=== PATIENT | male | born 1955 | race Caucasian/White ===

== ENCOUNTER 2018-06-06 09:50 | Day surgery (SDC) | payer OTHER ==
[~2018-06-06] VITALS: Ht 182.9 cm; Wt 84.9 kg
[2018-06-06] MEDS ORDERED: vitamin d3 (11:36)
[2018-06-06] MEDS ORDERED: omeprazole (11:36)
[2018-06-06 11:40] VITALS: BP 146/83; PULSE 65; RESP 19
[2018-06-06] MEDS ORDERED: LIDOCAINE 2% (SDV) 5 ML INJ ONE (11:54)
[2018-06-06] MEDS ORDERED: PROPOFOL 60 ML ONE (11:54)
--- NOTE | 2018-06-06 11:54 | PREAC ---
Date/Time of Note Date/Time of Note DATE: 06/06/18 TIME: 11:52 Anesthesia Eval and Record Evaluation Time Pre-Procedure Interview DATE: 06/06/18 TIME: 11:52 Age 62 Sex male NPO: 8 hrs Preoperative diagnosis Dysphagia, colon screening Planned procedure EGD, colonoscopy Past Medical History Past Medical History: Includes Cardio: HTN Surgery & Anesthesia Issues No known issue Meds Anticoagulation: No Beta Sal within 24 hr: No Reason Beta Sal not given: Pt. not on B-Sal Reported Medications [vitamin d3] No Conflict Check 06/06/18 [omeprazole] No Conflict Check 06/06/18 Meds reviewed: Yes Allergies Coded Allergies: No Known Allergy (Unverified , 06/06/18) Allergies Reviewed: Yes Labs/Studies Labs Reviewed: Reviewed by anesthesiologist test: N/A Studies: ECG Pre-procedure Exam Last vitals Vital Signs Date Temp Pulse Resp B/P (MAP) Pulse Ox O2 O2 Flow FiO2 Time Delivery Rate 06/06/18 98.1 65 19 146/83 97 Room Air 11:40 (104) Airway: Adequate mouth opening, Adequate thyromental dist Mallampati: Mallampati II Teeth: Normal Lung: Normal Heart: Normal ASA Physical Status ASA physical status: 2 Emergency: None Planned Anesthetic General/MAC: MAC Planned Pain Management Parenteral pain med Pre-operative Attestations Prior to commencing anesthesia and surgery, the patient was re-evaluated, there was verification of: *The patient's identity *The results of appropriate recent lab work and preoperative vital signs *The above evaluation not changing prior to induction *Anesthetic plan, risk benefits, alternative and complications discussed with patient/family; questions answered; patient/family understands, accepts and wishes to proceed. GARETH CARREON MD Jun 06, 2018 11:54
--- NOTE | 2018-06-06 12:25 | PAC ---
Date/Time of Note Date/Time of Note DATE: 06/06/18 TIME: 12:25 Post-Anesthesia Notes Post-Anesthesia Note Last documented vital signs Vital Signs Date Temp Pulse Resp B/P (MAP) Pulse Ox O2 O2 Flow FiO2 Time Delivery Rate 06/06/18 98.1 65 19 146/83 97 Room Air 11:40 (104) Activity: WNL Respiratory function: WNL Cardiovascular function: WNL Mental status: Baseline Pain reasonably controlled: Yes Hydration appropriate: Yes Nausea/Vomiting absent: Yes Comments BP:125/67, pulse:68, spo2:100%, T:98,8 GARETH CARREON MD Jun 06, 2018 12:25
[2018-06-06] MEDS ORDERED: FENTAnyl 50 MCG/ML VIAL IV PRN (12:30)
[2018-06-06] MEDS ORDERED: ONDANSETRON 4 MG INJ IV PRN (12:30)
[2018-06-06] MEDS ORDERED: DIPHENHYDRAMINE 50 MG INJ IV PRN (12:30)
[2018-06-06] MEDS ORDERED: MEPERIDINE 25 MG INJ IV PRN (12:30)
[2018-06-06 12:54] VITALS: BP 139/92; PULSE 67; RESP 18
== END 2018-06-06 14:48 | disposition home or self-care (01) ==
LOC: GIL 09:50
PROVIDERS: ATTEND Internal Medicine Gastroenterology
DX: Z12.11 Encounter for screening for malignant neoplasm of colon (principal); K22.70 Barrett's esophagus without dysplasia; K57.30 Diverticulosis of large intestine without perforation or abscess without bleeding
CPT/HCPCS: 43239; 45378; 88305; 88312; 88313; Z7610

== ENCOUNTER 2018-08-09 07:01 | Observation (INO) | payer OTHER ==
[2018-08-09] VITALS (15 sets, daily range): BP systolic 120–171; BP diastolic 66–101; PULSE 46–61; RESP 14–20; Ht 180.3 cm; Wt 85.2 kg
[~2018-08-09] VITALS: Ht 180.3 cm; Wt 85.2 kg
[~2018-08-09 07:01] MED LIST: omeprazole; vitamin d3
[2018-08-09] MEDS ORDERED: LISI30TA47 PO (07:45)
[2018-08-09] MEDS ORDERED: HYDR25TA6 PO (07:45)
[2018-08-09] MEDS ORDERED: FLUO40CA PO (07:46)
[2018-08-09] MEDS ORDERED: SERT-165 PO (07:46)
[2018-08-09] MEDS ORDERED: DIPHENHYDRAMINE 50 MG CAP PO SCH (07:46)
[2018-08-09] MEDS ORDERED: DIAZEPAM 5 MG TAB PO SCH (07:46)
[2018-08-09] MEDS ORDERED: FAMOTIDINE 20 MG TAB PO SCH (07:46)
[2018-08-09] MEDS ORDERED: TREX50 PO (07:47)
[2018-08-09] MEDS ORDERED: SIMV40TA2 PO (07:48)
[2018-08-09] MEDS ORDERED: FENO200 PO (07:48)
[2018-08-09] MEDS ORDERED: OMEG-158 PO (07:49)
[2018-08-09] MEDS ORDERED: TRAZ-111 PO (07:49)
[2018-08-09] MEDS ORDERED: SOD CHLORIDE 0.45% 1,000 ML IV SCH (08:00)
[2018-08-09] MEDS ORDERED: HEPARIN 1000 UNITS/ML 10 ML INJ ONE (08:46)
[2018-08-09] MEDS ORDERED: NITROGLYCERIN (IC) 100 MCG/ML INJ ONE (08:46)
[2018-08-09] MEDS ORDERED: LIDOCAINE 1% (MDV) 20 ML INJ ONE (08:46)
[2018-08-09] MEDS ORDERED: MIDAZOLAM 1 MG/ML 2 ML INJ ONE (08:46)
[2018-08-09] MEDS ORDERED: IODIXANOL LOCM 100 ML BTL ONE (08:46)
[2018-08-09] MEDS ORDERED: FENTAnyl 50 MCG/ML VIAL ONE (08:46)
[2018-08-09] MEDS ORDERED: SOD CHLORIDE 0.9% 500 ML ONE (08:47)
[2018-08-09] MEDS ORDERED: VERAPAMIL 5 MG INJ ONE (09:02)
[2018-08-09] MEDS ORDERED: SOD CHLORIDE 0.9% 1,000 ML IV SCH (10:20)
[2018-08-09] MEDS ORDERED: TICAGRELOR 90 MG TABLET ONE (10:20)
[2018-08-09] MEDS ORDERED: ASPIRIN 325 MG TAB ONE (10:20)
--- NOTE | 2018-08-09 10:20 | SIPON ---
Date/Time of Note Date/Time of Note DATE: 08/09/18 TIME: 10:18 Operative Report Preoperative Diagnosis 1.Chest pain Postoperative Diagnosis 1.obstructuve cad s/p stent x 1 Operation/Procedure Performed 1.C 2.PTCA/stent x 1 to LCX Surgeon see signature line residential assistant 1.Luis Eduardo Anesthesia: moderate sedation Estimated blood loss: minimal Transfusion Required none Specimen none Grafts/Implants none Complications none OSMIN AUGUSTE Aug 09, 2018 10:20
[2018-08-09] MEDS ORDERED: IOHEXOL 350MG/ML 50 ML BTL ONE (10:27)
[2018-08-09] MEDS ORDERED: ONDANSETRON 4 MG INJ IV PRN (10:30)
[2018-08-09] MEDS ORDERED: morphine 2 MG INJ IV PRN (10:30)
[2018-08-09] MEDS ORDERED: OXYCODONE/ACETAMINOPHEN (5/325) TAB PO PRN (10:30)
[2018-08-09] MEDS ORDERED: AL HYDROX/MG HYDROX/SIMETH 30 ML CUP PO PRN (10:30)
[2018-08-09] MEDS ORDERED: ACETAMINOPHEN 325 MG TAB PO PRN (10:30)
[2018-08-09] MEDS ORDERED: ZOLPIDEM 5 MG TAB PO PRN (10:30)
[2018-08-09] MEDS: TICAGRELOR 90 MG TABLET PO SCH ×2 (13:27→20:20)
--- NOTE | 2018-08-09 13:48 | RADRPT ---
Vent Rate: 64 bpm RR Interval: 940 msec [place] Interval: 194 msec QRS Duration: 89 msec QT Interval: 394 msec QTC Interval: 406 msec P-R-T [place]: 50 - 0 - 44 degrees Sinus rhythm...normal P axis Indeterminate axis...QRS axis indeterminate ST elevation suggests acute pericarditis Electronically Signed By: Adiel Solorio
[2018-08-09] MEDS ORDERED: DOCUSATE SODIUM 100 MG CAP PO PRN (14:00)
--- NOTE | 2018-08-09 14:02 | HP ---
Date/Time of Note Date/Time of Note DATE: 08/09/18 TIME: 13:53 Assessment/Plan VTE Prophylaxis Risk score (from Nsg)>0 risk: 2 SCD applied (from Nsg): No Lines/Catheters IV Catheter Type (from Nrsg): Peripheral IV Urinary Cath still in place: No Assessment/Plan Assessment/Plan chest pain LHC PTCA/stent x 1 to LCX obstructive cad s/p stent x 1 - cardio consult - [facility] - SCD - Protonix Hypertension Hyperlipidemia Plan dw dr Kimble /staff/patient Result Diagram: 08/09/18 0730 08/09/18 0730 Results 24hrs Laboratory Tests Test 08/09/18 07:30 White Blood Count 4.9 Red Blood Count 4.46 L Hemoglobin 14.3 Hematocrit 41.5 L Mean Corpuscular Volume 93.0 Mean Corpuscular Hemoglobin 32.1 Mean Corpuscular Hemoglobin Concent 34.5 Red Cell Distribution Width 12.5 Platelet Count 179 Mean Platelet Volume 10.9 H Immature Granulocytes % 0.200 Neutrophils % 56.1 Lymphocytes % 32.6 Monocytes % 8.7 Eosinophils % 1.8 Basophils % 0.6 Nucleated Red Blood Cells % 0.0 Immature Granulocytes # 0.010 Neutrophils # 2.8 Lymphocytes # 1.6 Monocytes # 0.4 Eosinophils # 0.1 Basophils # 0.0 Nucleated Red Blood Cells # 0.0 Prothrombin Time 12.3 Prothrombin Time Ratio 1.0 INR International Normalized Ratio 0.90 Activated Partial Thromboplast Time 32.6 Sodium Level 141 Potassium Level 3.9 Chloride Level 104 Carbon Dioxide Level 27 Anion Gap 10 Blood Urea Nitrogen 12 Creatinine 1.02 Est Glomerular Filtrat Rate mL/min > 60 Glucose Level 108 Calcium Level 9.5 Triglycerides Level > 525 H Cholesterol Level 222 H LDL Cholesterol, Calculated HDL Cholesterol 29 L Cholesterol/HDL Ratio 7.6 HPI/ROS Admit Date/Time Admit Date/Time Aug 09, 2018 at 10:24 ROS Eyes: no complaints Respiratory: no complaints Cardiovascular: no complaints Gastrointestinal: no complaints Genitourinary: no complaints Musculoskeletal: no complaints Skin: no complaints Endocrine: no complaints Lymphatic: no complaints Psychological: nl mood/affect Immunologic: no complaints PMH/Family/Social Past Medical History Medical History: high cholesterol, hypertension Medications Current Medications Sodium Chloride 1,000 ml @ 20 mls/hr Q24H IV ; Start 3/21/19 at 08:00; Stop 08/11/18 at 09:59 Aspirin (Halfprin) 81 mg DAILY PO ; Start 08/10/18 at 09:00 Ticagrelor (Brilinta) 90 mg BID PO Last administered on 08/09/18at 13:27; Admin Dose 90 MG; Start 08/09/18 at 12:00 Acetaminophen (Tylenol Tab) 650 mg Q4H PRN PO PAIN; Start 08/09/18 at 10:30 Oxycodone/ Acetaminophen (Percocet (5/ 325)) 1 tab Q4H PRN PO PAIN; Start 08/09/18 at 10:30 Morphine Sulfate (morphine) 1 mg Q1H PRN IV PAIN; Start 08/09/18 at 10:30 Zolpidem Tartrate (Ambien) 5 mg HS MAY REPEAT X 1 PRN PO INSOMNIA; Start 08/09/18 at 10:30 Al Hydrox/Mg Hydrox/Simethicone (Mag-Al Plus) 30 ml Q4H PRN PO GASTROINTESTINAL UPSET; Start 08/09/18 at 10:30 Ondansetron HCl (Zofran Inj) 4 mg Q4H PRN IV NAUSEA AND/OR VOMITING; Start 08/09/18 at 10:30 Sodium Chloride 1,000 ml @ 75 mls/hr [id number] IV Last administered on 08/09/18at 11:32; Admin Dose 75 MLS/HR; Start 08/09/18 at 10:20; Stop 08/09/18 at 23:39 Coded Allergies: No Known Allergy (Unverified , 08/09/18) Social History Alcohol Use: occasionally Smoking Status: Never smoker Drug Use: none Exam/Review of Systems Vital Signs Vitals Vital Signs Date Temp Pulse Resp B/P (MAP) Pulse Ox O2 O2 Flow FiO2 Time Delivery Rate 08/09/18 49 12:47 08/09/18 98.1 20 124/88 99 Room Air 11:05 (100) Exam Constitutional: alert, oriented, well developed Psych: nl mood/affect Head: normocephalic Eyes: EOMI, nl lids ENMT: nl external ears & nose Respiratory: clear to auscultation Cardiovascular: nl pulses Gastrointestinal: soft, non-tender Musculoskeletal: nl extremities to inspection Extremities: normal pulses Neurological: nl mental status, nl speech Skin: nl KAREN Gallego Aug 09, 2018 14:02
[2018-08-09] MEDS: FLUOXETINE 20 MG CAP PO SCH (15:06)
[2018-08-09] MEDS: SERTRALINE 100 MG TAB PO SCH (15:06)
--- NOTE | 2018-08-09 15:27 | CARRPT ---
DATE OF PROCEDURE: 08/09/2018 TYPE OF PROCEDURES: 1. Left heart catheterization. 2. Coronary angiography. 3. Percutaneous transluminal coronary angioplasty with placement of Synergy drug-eluting stent x1 to mid distal circumflex, 3.0 x 24 mm. 4. Moderate conscious sedation. ATTENDING PHYSICIAN: Osmin Dotson MD REFERRING PHYSICIAN: Self-referred. INDICATION: Chest pain refractory to medical therapy with positive stress test findings for anterior lateral ischemia. TYPE OF ANESTHESIA: Conscious local. BRIEF HISTORY: Mr. Stone is a 62-year-old male with history of hypertension, dyslipidemia, who initially presented with complaints of substernal chest pain. The patient was placed on ascending me dical therapy, but continued to have chest pains. He underwent cardiac stress testing revealing posi tive ischemia. Given these findings, the patient was referred for and presents today in order to und ergo left heart catheterization to assess possibility of significant obstructive coronary artery dise ase lending to symptoms of chest pain and positive stress test findings. DESCRIPTION OF PROCEDURE: After informed consent was obtained, the patient was brought to the [facility] cardiac catheterization lab where his right radial wrist was prepped and drape d in sterile fashion. A 2% lidocaine was infiltrated into the right radial area in order to achieve adequate anesthesia. Using the modified Seldinger technique, the right radial artery was cannulated and a 6-[place] arterial sheath was placed. A 6-[place] JL3.5 catheter was used to cannulate the left main coronary ostium. With contrast injection, multiple views of the left coronary system were obtai gretchen. JL3.5 was removed a guidewire and a JR4 was used to cannulate the right coronary arterial ostiu m. With contrast injection, multiple views of the right coronary system were obtained. JL4 was audie norah over a guidewire. A 6-[place] pigtail was passed up the aorta and placed in LV. LVEDP was measur ed and pullback across the aortic valve and removed. Subsequent at this time, we moved directly into an interventional procedure. The patient had an ACT checked and he received 5000 units of heparin i n his radial cocktail returning with an adequate preinterventional ACT. The patient had a CLS3 guide used to cannulate the left main coronary ostium. A 0.014 balance middleweight guidewire was passed distal to the lesion. The lesion was pretreated with a 2.5 x 21 balloon up to 14 to 16 atmospheres x 2. The balloon was removed and the lesion was stented with a 3.0 x 24 mm drug-eluting stent deployed at 14 atmospheres and post-dilated with stent placement at 16 atmospheres. Followup angiogram was o btained revealing excellent deployment of stent, VINCE 3 flow throughout the vessel, no signs of compl ication including perforation or dissection and mild step down distal end of the stent. Subsequently at this time, the patient's interventional guide and guidewires were removed. The patient's sheath was removed. TR band was applied. There were no noted complications. The patient received Brilinta 180 mg and aspirin 321 mg. This completed the procedure. FINDINGS: Coronary angiography: Left main is 5 mm, no significant focal stenoses. Circumflex proxi bradley is a 3.5 mm vessel and in its mid distal portion has a 90% long tubular lesion. There is mid b ranching obtuse marginal 3.5 mm with proximal body tubular 20% to 30% stenosis. The LAD proximally i s a 3.5 mm vessel and in its mid portion has approximately 40% stenosis. The remainder of the LAD th ereafter is free from significant focal stenoses and goes around the apex. There is mid branching di agonal just above the area of stenosis, 2 mm with no significant focal stenoses. The patient's right coronary artery proximally is a 3.5 mm vessel and in its midportion has a tubular 20% to 30% stenosi s, dominant vessel, gives off a 2.5 mm PDA and a 2.5 posterolateral branch each with no significant f ocal stenoses. Measurement of left ventricular end diastolic pressure of 14 to 16. PTCA and stent placement: Prior to PTCA and stent placement within the patient's circumflex stenosis , there is 90% stenosis. Post-PTCA and stent placement, the patient had no residual stenosis, VINCE 3 flow throughout the vessel, no signs of complication including perforation or dissection and very mi ld step down at the distal end of the stent and VINCE 3 flow throughout the vessel. TOTAL FLUOROSCOPY TIME: 6.8 minutes. TOTAL CONTRAST: 135 mL. IMPRESSION: 1. Single vessel obstructive coronary artery disease involving a long tubular lesion in circumflex v essel, status post PTCA and stent placement x1 with excellent result. 2. High normal left heart filling pressures. 3. No significant aortic stenosis by gradient. RECOMMENDATIONS: In light of procedure findings at this time, we would: 1. Maintain the patient on Brilinta 90 mg 1 tab p.o. daily for at least 6 months. 2. Aspirin 81 mg 1 tab p.o. daily indefinitely. 3. Maximize medical management. 4. Aggressive risk factor reduction. 5. The patient will be readmitted to the same day surgery for post-catheterization observation and c ontinued management of symptoms with probable discharge the following day. Dictated By: OSMIN PATIÑO/RITA Conf#: [id number] DID#: [id number]
[2018-08-09] MEDS ORDERED: hydrALAzine 20 MG INJ IV PRN (17:00)
[2018-08-09] MEDS ORDERED: traZODone 50 MG TAB PO SCH (21:00)
[2018-08-10] VITALS (10 sets, daily range): BP systolic 122–134; BP diastolic 75–89; PULSE 47–90; RESP 14–18
[2018-08-10] MEDS ORDERED: PANTOPRAZOLE (EC) 40 MG TAB PO SCH (06:00)
[2018-08-10] MEDS: TICAGRELOR 90 MG TABLET PO SCH ×2 (08:37→20:56)
[2018-08-10] MEDS ORDERED: HYDROCHLOROTHIAZIDE 25 MG TAB PO SCH (09:00)
[2018-08-10] MEDS: FLUOXETINE 20 MG CAP PO SCH (09:00)
[2018-08-10] MEDS ORDERED: LISINOPRIL 10 MG TAB PO SCH (09:00)
[2018-08-10] MEDS ORDERED: ASPIRIN (EC) 81 MG TAB PO SCH (09:00)
[2018-08-10] MEDS ORDERED: FLUOXETINE 20 MG CAP PO SCH (09:00)
[2018-08-10] MEDS: SERTRALINE 100 MG TAB PO SCH (09:00)
[2018-08-10] MEDS ORDERED: SERTRALINE 100 MG TAB PO SCH (09:00)
--- NOTE | 2018-08-10 12:24 | PN ---
Date/Time of Note Date/Time of Note DATE: 08/10/18 TIME: 12:23 Assessment/Plan VTE Prophylaxis Risk score (from Nsg)>0 risk: 2 SCD applied (from Nsg): No Lines/Catheters IV Catheter Type (from Nrsg): Peripheral IV Urinary Cath still in place: No Assessment/Plan Assessment/Plan chest pain LHC PTCA/stent x 1 to LCX obstructive cad s/p stent x 1 - cardio consult - resume home meds - SCD - Protonix Hypertension Hyperlipidemia Plan dw dr Kimble /staff/patient Result Diagram: 08/10/18 0634 08/10/18 0634 Results 24hrs Laboratory Tests Test 08/10/18 06:34 White Blood Count 6.3 # Red Blood Count 4.91 Hemoglobin 15.9 Hematocrit 46.0 Mean Corpuscular Volume 93.7 Mean Corpuscular Hemoglobin 32.4 Mean Corpuscular Hemoglobin Concent 34.6 Red Cell Distribution Width 12.7 Platelet Count 197 Mean Platelet Volume 11.1 H Immature Granulocytes % 0.300 Neutrophils % 72.5 Lymphocytes % 16.9 Monocytes % 8.4 Eosinophils % 1.3 Basophils % 0.6 Nucleated Red Blood Cells % 0.0 Immature Granulocytes # 0.020 Neutrophils # 4.6 Lymphocytes # 1.1 Monocytes # 0.5 Eosinophils # 0.1 Basophils # 0.0 Nucleated Red Blood Cells # 0.0 Sodium Level 142 Potassium Level 3.9 Chloride Level 102 Carbon Dioxide Level 28 Anion Gap 12 Blood Urea Nitrogen 13 Creatinine 1.11 Est Glomerular Filtrat Rate mL/min > 60 Glucose Level 109 Calcium Level 9.7 Creatine Kinase 90 Creatine Kinase Index 0.5 Creatinine Kinase MB (Mass) 0.47 Troponin I 0.018 Exam/Review of Systems Exam Vitals Vital Signs Date Temp Pulse Resp B/P (MAP) Pulse Ox O2 O2 Flow FiO2 Time Delivery Rate 08/10/18 97.9 62 14 128/82 98 11:47 (97) 08/10/18 Room Air 04:35 Intake and Output 08/09/18 08/09/18 08/10/18 1515:00 23:00 07:00 IntakeIntake Total 1045 ml 700 ml OutputOutput Total 700 ml BalanceBalance 345 ml 700 ml Constitutional: alert, oriented, well developed Psych: nl mood/affect Eyes: EOMI, nl lids, nl sclera ENMT: nl external ears & nose Neck: non-tender Respiratory: clear to auscultation Cardiovascular: nl pulses, other Gastrointestinal: soft, non-tender Musculoskeletal: nl extremities to inspection Extremities: normal pulses Neurological: nl mental status, nl speech Skin: nl turgor Lymph: nontender Results Results 24hrs Laboratory Tests Test 08/10/18 06:34 White Blood Count 6.3 # Red Blood Count 4.91 Hemoglobin 15.9 Hematocrit 46.0 Mean Corpuscular Volume 93.7 Mean Corpuscular Hemoglobin 32.4 Mean Corpuscular Hemoglobin Concent 34.6 Red Cell Distribution Width 12.7 Platelet Count 197 Mean Platelet Volume 11.1 H Immature Granulocytes % 0.300 Neutrophils % 72.5 Lymphocytes % 16.9 Monocytes % 8.4 Eosinophils % 1.3 Basophils % 0.6 Nucleated Red Blood Cells % 0.0 Immature Granulocytes # 0.020 Neutrophils # 4.6 Lymphocytes # 1.1 Monocytes # 0.5 Eosinophils # 0.1 Basophils # 0.0 Nucleated Red Blood Cells # 0.0 Sodium Level 142 Potassium Level 3.9 Chloride Level 102 Carbon Dioxide Level 28 Anion Gap 12 Blood Urea Nitrogen 13 Creatinine 1.11 Est Glomerular Filtrat Rate mL/min > 60 Glucose Level 109 Calcium Level 9.7 Creatine Kinase 90 Creatine Kinase Index 0.5 Creatinine Kinase MB (Mass) 0.47 Troponin I 0.018 Medications Medication Current Medications Sodium Chloride 1,000 ml @ 20 mls/hr Q24H IV ; Start 08/09/18 at 08:00; Stop 08/11/18 at 09:59 Aspirin (Halfprin) 81 mg DAILY PO Last administered on 08/10/18at 08:30; Admin Dose 81 MG; Start 08/10/18 at 09:00 Ticagrelor (Brilinta) 90 mg BID PO Last administered on 08/10/18at 08:37; Admin Dose 90 MG; Start 08/09/18 at 12:00 Acetaminophen (Tylenol Tab) 650 mg Q4H PRN PO PAIN Last administered on 08/09/18at 20:15; Admin Dose 650 MG; Start 08/09/18 at 10:30 Oxycodone/ Acetaminophen (Percocet (5/ 325)) 1 tab Q4H PRN PO PAIN; Start 08/09/18 at 10:30 Morphine Sulfate (morphine) 1 mg Q1H PRN IV PAIN; Start 08/09/18 at 10:30 Zolpidem Tartrate (Ambien) 5 mg HS MAY REPEAT X 1 PRN PO INSOMNIA; Start 08/09/18 at 10:30 Al Hydrox/Mg Hydrox/Simethicone (Mag-Al Plus) 30 ml Q4H PRN PO GASTROINTESTINAL UPSET; Start 08/09/18 at 10:30 Ondansetron HCl (Zofran Inj) 4 mg Q4H PRN IV NAUSEA AND/OR VOMITING; Start 08/09/18 at 10:30 Hydrochlorothiazide (Hydrochlorothiazide) 25 mg DAILY PO Last administered on 08/10/18 08:32; Admin Dose 25 MG; Start 08/10/18 at 09:00 Lisinopril (Zestril) 30 mg DAILY PO Last administered on 08/10/18at 08:33; Admin Dose 30 MG; Start 08/10/18 at 09:00 Trazodone HCl (Desyrel) 50 mg QHS PO Last administered on 08/09/18at 20:21; Admin Dose 50 MG; Start 08/09/18 at 21:00 Pantoprazole (Protonix Tab) 40 mg DAILY@06 PO Last administered on 08/10/18 05:02; Admin Dose 40 MG; Start 08/10/18 at 06:00 Docusate Sodium (Colace) 100 mg DAILY PRN PO CONSTIPATION; Start 08/09/18 at 14:00 Fluoxetine HCl (Prozac) 40 mg DAILY PO Last administered on 08/09/18at 15:06; Admin Dose 40 MG; Start 08/09/18 at 15:00 Sertraline HCl (Zoloft) 100 mg DAILY PO Last administered on 08/09/18at 15:06; Admin Dose 100 MG; Start 08/09/18 at 15:00 Hydralazine HCl (Apresoline) 20 mg Q6H PRN IV >160/95 Last administered on 08/09/18at 17:12; Admin Dose 20 MG; Start 08/09/18 at 17:00 KAREN RANKIN Aug 10, 2018 12:24
[2018-08-10] MEDS ORDERED: CLOP75TA27 PO ×2 (12:35→12:36)
--- NOTE | 2018-08-10 12:41 | PDOCDIS ---
Discharge Instructions CONDITION [id number] Patient Condition: [id number] Stable HOME CARE INSTRUCTIONS: [id number] Diet Instructions: [id number] ACTIVITY: [id number] Activity Restrictions: [id number] Slowly Increase Activity Rest between Activity Avoid heavy lifting Do not operate Machinery Do not operate Power Tool Avoid Heavy Housework [id number] Bathing Restrictions: [id number] Sponge Bath FOLLOW UP/APPOINTMENTS Follow-up Plan FU with PMD x1 week FU with cardiology as recommenced Call 911 or go to the nearest hospital if symptoms get worse Patient verbalized understanding dc instructions. KAREN Rashid Dr Aug 10, 2018 12:41
--- NOTE | 2018-08-10 14:24 | RADRPT ---
Vent Rate: 48 bpm RR Interval: 1264 msec [place] Interval: 199 msec QRS Duration: 90 msec QT Interval: 429 msec QTC Interval: 382 msec P-R-T [place]: 59 - 88 - 65 degrees Sinus bradycardia...rate< 50 Borderline right axis deviation...QRS axis ( 81, 90) ST elevation, consider inferior injury...ST >0.08mV, II III aVF Baseline wander in lead(s) V5 Electronically Signed By: Timothy Crocker
--- NOTE | 2018-08-10 14:27 | RADRPT ---
Vent Rate: 48 bpm RR Interval: 1264 msec [place] Interval: 204 msec QRS Duration: 91 msec QT Interval: 409 msec QTC Interval: 364 msec P-R-T [place]: 28 - 72 - 38 degrees Sinus bradycardia...rate< [address] elevation, anterior leads...ST >0.10mV, V1-V4 Electronically Signed By: Timothy Crocker
--- NOTE | 2018-08-10 15:51 | CONS ---
Assessment/Plan Assessment/Plan Hospital Course (Demo Recall) IMP: 1.cad s/p[ PTCA/stent x 1 to LCX for highgrade stenosis POD#1 2.abnl pi prior to stent 3.HTN 4.HL 5. Psych d/o Recc: -ON Tele -OK for d/c from cardiac standpoint and has f/u scheduled with me next week -Continue current asa/brilinta today with transition to plavix tomorrow as insurance will not cover brilinta(#00 po tomorrow plavix and 75 mg daily therafter -Continue zestril/HCTZ Consultation Date/Type/Reason Admit Date/Time Aug 09, 2018 at 10:24 Initial Consult Date 08/09/18 Type of Consult Cardiology Reason for Consultation cad s/p stent Requesting Provider: TATIANA FREY MD Date/Time of Note DATE: 08/10/18 TIME: 15:36 Exam/Review of Systems Vital Signs Vitals Vital Signs Date Temp Pulse Resp B/P (MAP) Pulse Ox O2 O2 Flow FiO2 Time Delivery Rate 08/10/18 97.9 62 14 128/82 98 11:47 (97) 08/10/18 Room Air 04:35 Intake and Output 08/09/18 08/09/18 08/10/18 1515:00 23:00 07:00 IntakeIntake Total 1045 ml 700 ml OutputOutput Total 700 ml BalanceBalance 345 ml 700 ml Exam Exam Review of Systems: CONSTITUTIONAL: No fevers, chills. PULMONARY: No sob CARDIOVASCULAR: No chest pain/palpitations GASTROINTESTINAL: No nausea/vomiting. GENITOURINARY: No hematuria/dysuria. MUSCULOSKELETAL: No myagias/arthalgias. PSYCHIATRIC: The patient denies depression. NEUROLOGIC: No weakness Constitutional: alert, oriented Psych: no complaints Head: normocephalic ENMT: mucosa pink and moist Neck: supple, jvd (9 cm water) Respiratory: diminished breath sounds Cardiovascular: regular rate and rhythm Gastrointestinal: soft, non-tender Musculoskeletal: muscle tone (normal) Extremities: edema (none) Neurological: other (No focal deficits) Labs Result Diagram: 08/10/18 0634 08/10/18 0634 Results 24hrs Laboratory Tests Test 08/10/18 06:34 White Blood Count 6.3 # Red Blood Count 4.91 Hemoglobin 15.9 Hematocrit 46.0 Mean Corpuscular Volume 93.7 Mean Corpuscular Hemoglobin 32.4 Mean Corpuscular Hemoglobin Concent 34.6 Red Cell Distribution Width 12.7 Platelet Count 197 Mean Platelet Volume 11.1 H Immature Granulocytes % 0.300 Neutrophils % 72.5 Lymphocytes % 16.9 Monocytes % 8.4 Eosinophils % 1.3 Basophils % 0.6 Nucleated Red Blood Cells % 0.0 Immature Granulocytes # 0.020 Neutrophils # 4.6 Lymphocytes # 1.1 Monocytes # 0.5 Eosinophils # 0.1 Basophils # 0.0 Nucleated Red Blood Cells # 0.0 Sodium Level 142 Potassium Level 3.9 Chloride Level 102 Carbon Dioxide Level 28 Anion Gap 12 Blood Urea Nitrogen 13 Creatinine 1.11 Est Glomerular Filtrat Rate mL/min > 60 Glucose Level 109 Calcium Level 9.7 Creatine Kinase 90 Creatine Kinase Index 0.5 Creatinine Kinase MB (Mass) 0.47 Troponin I 0.018 Medications Medications Current Medications Sodium Chloride 1,000 ml @ 20 mls/hr Q24H IV ; Start 08/09/18 at 08:00; Stop 08/11/18 at 09:59 Aspirin (Halfprin) 81 mg DAILY PO Last administered on 08/10/18at 08:30; Admin Dose 81 MG; Start 08/10/18 at 09:00 Ticagrelor (Brilinta) 90 mg BID PO Last administered on 08/10/18at 08:37; Admin Dose 90 MG; Start 08/09/18 at 12:00; Stop 08/10/18 at 23:00 Acetaminophen (Tylenol Tab) 650 mg Q4H PRN PO PAIN Last administered on 08/09/18at 20:15; Admin Dose 650 MG; Start 08/09/18 at 10:30 Oxycodone/ Acetaminophen (Percocet (5/ 325)) 1 tab Q4H PRN PO PAIN; Start 08/09/18 at 10:30 Morphine Sulfate (morphine) 1 mg Q1H PRN IV PAIN; Start 08/09/18 at 10:30 Zolpidem Tartrate (Ambien) 5 mg HS MAY REPEAT X 1 PRN PO INSOMNIA; Start 08/09/18 at 10:30 Al Hydrox/Mg Hydrox/Simethicone (Mag-Al Plus) 30 ml Q4H PRN PO GASTROINTESTINAL UPSET; Start 08/09/18 at 10:30 Ondansetron HCl (Zofran Inj) 4 mg Q4H PRN IV NAUSEA AND/OR VOMITING; Start 08/09/18 at 10:30 Hydrochlorothiazide (Hydrochlorothiazide) 25 mg DAILY PO Last administered on 08/10/18at 08:32; Admin Dose 25 MG; Start 08/10/18 at 09:00 Lisinopril (Zestril) 30 mg DAILY PO Last administered on 08/10/18at 08:33; Admin Dose 30 MG; Start 08/10/18 at 09:00 Trazodone HCl (Desyrel) 50 mg QHS PO Last administered on 08/09/18at 20:21; Admin Dose 50 MG; Start 08/09/18 at 21:00 Pantoprazole (Protonix Tab) 40 mg DAILY@06 PO Last administered on 08/10/18at 05:02; Admin Dose 40 MG; Start 08/10/18 at 06:00 Docusate Sodium (Colace) 100 mg DAILY PRN PO CONSTIPATION; Start 08/09/18 at 14:00 Fluoxetine HCl (Prozac) 40 mg DAILY PO Last administered on 08/09/18at 15:06; Admin Dose 40 MG; Start 08/09/18 at 15:00 Sertraline HCl (Zoloft) 100 mg DAILY PO Last administered on 08/09/18at 15:06; Admin Dose 100 MG; Start 08/09/18 at 15:00 Hydralazine HCl (Apresoline) 20 mg Q6H PRN IV >160/95 Last administered on 08/09/18at 17:12; Admin Dose 20 MG; Start 08/09/18 at 17:00 Clopidogrel Bisulfate (plaVIX) 300 mg ONCE ONCE PO ; Start 08/11/18 at 09:00; Stop 08/11/18 at 09:01 Clopidogrel Bisulfate (plaVIX) 75 mg DAILY PO ; Start 08/12/18 at 09:00 OSMIN AUGUSTE Aug 10, 2018 15:48
--- NOTE | 2018-08-10 21:58 | DS ---
Date/Time of Note Date/Time of Note DATE: 08/10/18 TIME: 21:58 Discharge Summary Admission/Discharge Info Admit Date/Time Aug 09, 2018 at 10:24 Discharge Date/Time Aug 10, 2018 at 21:15 Patient Condition: Stable Home Meds Active Scripts Clopidogrel Bisulfate (Clopidogrel) 75 Mg Tablet, 300 MG PO ONCE, #4 TAB Prov:KAREN RANKIN 08/10/18 Clopidogrel Bisulfate (Clopidogrel) 75 Mg Tablet, 75 MG PO DAILY, #30 TAB Prov:FRANCISCO RANKINBIR 08/10/18 Reported Medications Trazodone Hcl* (Trazodone Hcl*) 50 Mg Tablet, 50 MG PO QHS, #30 TAB 08/09/18 Holiday-3/Dha/Epa/Fish Oil (FISH OIL 1,000 MG SOFTGEL) 1 Each Capsule, 1 EACH PO DAILY, CAP 08/09/18 Fenofibrate* (Fenofibrate*) 200 Mg Cap, 200 MG PO DAILY, CAP 08/09/18 Simvastatin* (Zocor*) 40 Mg Tablet, 40 MG PO QHS, #30 TAB 08/09/18 Naltrexone Hcl (Trexan) 50 Mg Tab, 50 MG PO DAILY, TAB 08/09/18 Fluoxetine Hcl* (Fluoxetine Hcl*) 40 Mg Capsule, 40 MG PO DAILY, CAP 08/09/18 Sertraline Hcl* (Sertraline Hcl*) 100 Mg Tablet, 100 MG PO DAILY, #30 TAB 08/09/18 Hydrochlorothiazide* (Hydrochlorothiazide*) 25 Mg Tab, 25 MG PO DAILY, #30 TAB 08/09/18 Lisinopril* (Lisinopril*) 30 Mg Tablet, 30 MG PO DAILY, #30 TAB 08/09/18 Discontinued Reported Medications [vitamin d3] No Conflict Check 06/06/18 [omeprazole] No Conflict Check 06/06/18 Follow-up Plan FU with PMD x1 week FU with cardiology as recommenced Call 911 or go to the nearest hospital if symptoms get worse Patient verbalized understanding dc instructions. keon Kimble Primary Care Provider Not On Staff Doctor Pending Labs Laboratory Tests Test 08/10/18 06:34 White Blood Count 6.3 10^3/ul (4.8-10.8) Red Blood Count 4.91 10^6/ul (4.70-6.10) Hemoglobin 15.9 g/dl (14.0-18.0) Hematocrit 46.0 % (42.0-52.0) Mean Corpuscular Volume 93.7 fl (82.0-101.0) Mean Corpuscular Hemoglobin 32.4 pg (29.0-33.0) Mean Corpuscular Hemoglobin Concent 34.6 g/dl (32.0-37.0) Red Cell Distribution Width 12.7 % (11.5-14.5) Platelet Count 197 10^3/UL (140-415) Mean Platelet Volume 11.1 fl (7.4-10.4) Immature Granulocytes % 0.300 % (0.001-0.429) Neutrophils % 72.5 % (39.0-77.0) Lymphocytes % 16.9 % (15.0-51.0) Monocytes % 8.4 % (0.0-11.0) Eosinophils % 1.3 % (0.0-7.0) Basophils % 0.6 % (0.0-2.0) Nucleated Red Blood Cells % 0.0 /100WBC (0.0-0.0) Immature Granulocytes # 0.020 10^3/ul (0.0-0.031) Neutrophils # 4.6 10^3/ul (1.6-7.5) Lymphocytes # 1.1 10^3/ul (0.8-2.9) Monocytes # 0.5 10^3/ul (0.3-0.9) Eosinophils # 0.1 10^3/ul (0.0-0.5) Basophils # 0.0 10^3/ul (0.0-0.1) Nucleated Red Blood Cells # 0.0 10^3/ul (0.0-0.0) Sodium Level 142 mmol/L (135-144) Potassium Level 3.9 mmol/L (3.5-5.1) Chloride Level 102 mmol/L (97-110) Carbon Dioxide Level 28 mmol/L (21-31) Anion Gap 12 (5-13) Blood Urea Nitrogen 13 mg/dl (7-20) Creatinine 1.11 mg/dl (0.61-1.24) Est Glomerular Filtrat Rate mL/min > 60 mL/min (>60) Glucose Level 109 mg/dl (70-220) Calcium Level 9.7 mg/dl (8.4-10.2) Creatine Kinase 90 IU/L (23-200) Creatine Kinase Index 0.5 Creatinine Kinase MB (Mass) 0.47 ng/ml (0.0-2.4) Troponin I 0.018 ng/ml (0.000-0.120) KAREN RANKIN Aug 10, 2018 21:58
[2018-08-11] MEDS ORDERED: CLOPIDOGREL 75 MG TAB PO ONE (09:00)
[2018-08-12] MEDS ORDERED: CLOPIDOGREL 75 MG TAB PO SCH (09:00)
== END 2018-08-10 21:15 | disposition home or self-care (01) ==
LOC: SDS 07:01 → REC 10:24 → SDS 10:24 → TEL 11:16
PROVIDERS: ADMIT Internal Medicine; ATTEND Internal Medicine
DX: I25.10 Atherosclerotic heart disease of native coronary artery without angina pectoris (principal); I10 Essential (primary) hypertension; E78.5 Hyperlipidemia, unspecified
CPT/HCPCS: 71045; 80048; 80061; 82550; 82553; 84484; 85025; 85610; 85730; 92928; 93005; 93458; C1874; C1887; J0360; J1644; J2250; J3010; J7040; Q9967; Z7500; Z7610; 99217; G0378